=== PATIENT | female | born 1960 ===

== ENCOUNTER 2016-04-01 09:11 | Emergency (ER) | payer OTHER ==
--- NOTE | 2016-04-01 10:14 | RAD ---
HISTORY: Fall 2 weeks ago. Initial encounter. COMPARISON: None. TECHNIQUE: two views of Right knee. FINDINGS: Bones: No fracture or dislocation. Enthesophyte formation of the quadriceps insertion and patellar tendon origin are present. Joints: Minimal medial compartment joint space loss. Soft tissue: No joint effusion. IMPRESSION: No fracture or dislocation. Other findings as above.
== END 2016-04-01 10:42 | disposition home or self-care (01) ==
LOC: ED 09:11
DX: S83.411A Sprain of medial collateral ligament of right knee, initial encounter (principal); W01.0XXA Fall on same level from slipping, tripping and stumbling without subsequent striking against object, initial encounter; Y93.E1 Activity, personal bathing and showering; Y92.002 Bathroom of unspecified non-institutional (private) residence as the place of occurrence of the external cause